=== PATIENT | male | born 1940 | race Native Hawaiian/Other Pacific Islander ===

== ENCOUNTER 2017-01-18 09:51 | Outpatient (CLI) | payer MEDICARE ==
[2017-01-18 13:18] LABS: Basophils % (Auto) 0.3 % (0.0-1.8); Eosinophils % (Auto) 2.1 % (0.0-4.3); Hemoglobin 13.4 gm/dl (11.8-15.2); Mean Corpuscular HGB Conc 32 % (32-34); Mean Corpuscular Hemoglobin 29 pg (28-32); Mean Corpuscular Volume 89 fl (84-94); Platelet Count 239 K/mm3 (140-440); Red Blood Count 4.71 M/mm3 (3.65-5.03); Red Cell Distribution Width 14.2 % (13.2-15.2); White Blood Count 7.2 K/mm3 (4.5-11.0)
[2017-01-18 13:31] LABS: Alanine Aminotransferase 15 units/L (7-56); Albumin 4.1 g/dL (3.9-5); Albumin/Globulin Ratio 1.2 %; Alkaline Phosphatase 54 units/L (35-129); Anion Gap 18 mmol/L; Blood Urea Nitrogen 18 mg/dL (9-20); Calcium 8.9 mg/dL (8.4-10.2); Carbon Dioxide 27 mmol/L (22-30); Chloride 98.9 mmol/L (98-107); Cholesterol 148 mg/dL (50-199); Glucose 139 mg/dL (75-100); HDL Cholesterol 31 mg/dL (40-59); LDL Cholesterol,Direct 88 mg/dL (50-130); Potassium 4.8 mmol/L (3.6-5.0); Sodium 139 mmol/L (137-145); Total Protein 7.6 g/dL (6.3-8.2); Triglycerides 146 mg/dL (2-149); Uric Acid 7.4 mg/dL (3.5-7.6)
[2017-01-21 07:08] LABS: Vitamin D, 25-OH, Total 24 ng/mL (30-100)
== END 2017-01-18 09:52 | disposition home or self-care (01) ==
LOC: LABHHL 09:51
PROVIDERS: ATTEND Internal Medicine
DX: E11.8 Type 2 diabetes mellitus with unspecified complications (principal); I45.9 Conduction disorder, unspecified; M25.50 Pain in unspecified joint
CPT/HCPCS: 36415; 80053; 80061; 82306; 82607; 83036; 84153; 84550; 85025

== ENCOUNTER 2018-12-24 09:39 | Outpatient (CLI) | payer MEDICARE ==
[2018-12-27 13:27] LABS: Vitamin D, 25-OH, D2 27 ng/mL
== END 2018-12-24 09:40 | disposition home or self-care (01) ==
LOC: LAB 09:39
PROVIDERS: ATTEND Internal Medicine
DX: E11.9 Type 2 diabetes mellitus without complications (principal); E55.9 Vitamin D deficiency, unspecified
CPT/HCPCS: 36415; 82306; 83036

== ENCOUNTER 2019-04-23 08:47 | Outpatient (CLI) | payer MEDICARE ==
[2019-04-23 10:03] LABS: Chol/HDL Ratio 4.66 %
== END 2019-04-23 08:48 | disposition home or self-care (01) ==
LOC: LAB 08:47
PROVIDERS: ATTEND Internal Medicine
DX: E78.5 Hyperlipidemia, unspecified (principal); E11.9 Type 2 diabetes mellitus without complications
CPT/HCPCS: 36415; 80061; 83036